=== PATIENT | female | born 1950 | race Caucasian/White ===

== ENCOUNTER 2017-04-24 16:55 | Outpatient (CLI) | payer MEDICARE | END 2017-04-24 16:56 | disposition home or self-care (01) | LOC: BICRAD 16:55 | PROVIDERS: ATTEND Family Medicine | DX: R50.9 Fever, unspecified (principal); R91.8 Other nonspecific abnormal finding of lung field | CPT/HCPCS: 71020 ==

== ENCOUNTER 2017-04-25 13:02 | Inpatient (IN) | payer MEDICARE ==
[2017-04-25 13:40] LABS: Hematocrit 28.7 % (36.0-47.0); Mean Platelet Volume 6.7 fL (7.4-10.4); Red Blood Cell (RBC) Count 3.03 mill/uL (4.20-5.40); White Blood Cell (WBC) Count 12.6 thou/uL (4.8-10.8)
[2017-04-25 13:56] LABS: Lactic Acid - Sepsis 2.3 mmol/L (0.5-2.2)
[2017-04-25 14:01] LABS: ALT (SGPT) 108 U/L (8-55); AST (SGOT) 86 U/L (5-34); Alkaline Phosphatase 494 U/L (40-150); Anion Gap 12 mmol/L (10-20); BUN (Urea Nitrogen) 12 mg/dL (9.8-20.1); Band 15 % (5-11); Calc. Creatinine Clearance 0 mL/min (70-130); Calcium 7.8 mg/dL (7.8-10.44); Carbon Dioxide 20 mmol/L (23-31); Chloride 105 mmol/L (98-107); Estimated GFR-MDRD 59; Globulin 2.9 g/dL (2.4-3.5); Metamyelocyte 1 % (0-0); Neutrophil 81 % (42-75); Protein, Total 5.3 g/dL (6.0-8.3)
--- NOTE | 2017-04-25 14:42 | RAD ---
PORTABLE CHEST: History: Nausea, vomiting. Fluid syndrome. FINDINGS: Lungs appear clear of infiltrate. Heart size is upper normal. Vascular markings are mildly enlarged. No focal infiltrate or significant effusion apparent. IMPRESSION: Heart size is mildly prominent with mild vascular prominence. No infiltrates seen on this portable pr ojection. If there is concern of pneumonia, recommend PA and lateral views of chest. POS: H
[2017-04-25 14:53] LABS: Bilirubin Moderate (Negative); Blood, Urine Moderate (Negative); Glucose, Urine (Dipstick) Negative (Negative); Ketone, Urine Trace mg/dL (Negative); Nitrite Negative (Negative); Protein, Urine (Dipstick) 100 mg/dL (Neg-Trace)
[2017-04-25 15:06] LABS: RBC/HPF 21-50 HPF (0-3); Squamous Epithelial 21-50 HPF (0-3)
[2017-04-25 15:11] LABS: Bacteria/HPF 3+ HPF (None Seen); Hyaline Casts/LPF 0-3 HYALINE CAST LPF (0-3 Hyaline); Renal Epithelial None Seen HPF (0-3); Yeast-All Forms None Seen HPF (None Seen)
[2017-04-25] MEDS ORDERED: metroNIDAZOLE 500 MG/100 ML BAG ONE (16:12)
[2017-04-25] MEDS ORDERED: Potassium Chloride 20 MEQ TAB ONE (16:12)
--- NOTE | 2017-04-25 17:37 | ULT ---
RIGHT UPPER QUADRANT ULTRASOUND 04/25/17 HISTORY: Abdominal pain. Multiple longitudinal and transverse images of the right upper quadrant of the abdomen is obtained us ing a multihertz curvilinear transducer. Real time, color flow and spectral waveform doppler analysis used to evaluate the right upper quadrant. Hyperechoic areas seen in the hepatic parenchyma most compatible with hepatic hemangiomas. No other hepatic masses or lesions seen. These hemangiomas appear to have been present on the patient 's previous ultrasound from February 2014. The common bile duct is of normal size measuring 5 mm. No evidence of intrahepatic biliary dilatation is seen. The gallbladder contains some echogenic material compatible with gallbladder sludge and small gallsto karlene. Small amount of pericholecystic fluid is seen. Normal hepatopedal flow is seen. The visualized portions of the pancreas is unremarkable. The right kidney is unremarkable. IMPRESSION: Gallbladder sludge and small gallstones. There also appears to be nonshadowing structures within the gallbladder lumen possibly representing gallbladder polyps. There does appear to be small amount of p ericholecystic fluid. POS: THEA
[2017-04-25] MEDS ORDERED: Ondansetron HCl/PF 4 MG/2 ML Vial IVP PRN (18:07)
[2017-04-25] MEDS ORDERED: Sodium Chloride 0.9% 1,000 ML IV SCH (18:07)
[2017-04-25] MEDS ORDERED: Ondansetron ODT 4 MG TAB SL PRN ×2 (18:07→20:40)
[2017-04-25 19:20] VITALS: BMI 22.5
[2017-04-25] MEDS: Dextrose 5%-Lactated Ringers 1,000 ML IV SCH (21:04)
[2017-04-25] MEDS: Acetaminophen 500 MG TAB PO PRN (22:09)
[2017-04-25] MEDS: Ondansetron HCl/PF 4 MG/2 ML Vial SLOW IVP PRN (22:11)
[2017-04-26] MEDS: Ondansetron HCl/PF 4 MG/2 ML Vial SLOW IVP PRN (04:23)
[2017-04-26] MEDS: Dextrose 5%-Lactated Ringers 1,000 ML IV SCH ×2 (04:24→15:00)
[2017-04-26] MEDS: Acetaminophen 500 MG TAB PO PRN (05:01)
--- NOTE | 2017-04-26 06:04 | HP ---
DATE OF ADMISSION: 04/25/2017 CHIEF COMPLAINT: Intractable nausea, vomiting, and diarrhea. HISTORY OF PRESENT ILLNESS: This is a 66-year-old female patient of Dr. Charly Mccoy'griselda who was initially seen in the office 7 days ago for flu-like symptoms which had started roughly 1-2 days prior, so this all started on 04/16. She was treated empirically with Tamiflu and afterwards during the treatment she started feeling worse, more nausea, more vomiting and then started to have diarrhe a, started to feel more weak, started to have a mild headache. She was seen yesterday in the office and felt worse with overall body weakness with some overall abdominal discomfort with nausea, vomitin g, diarrhea. She was found to have contaminated UA specimen with too numerous to count white counts, but with her history of neurogenic bladder and requirements of chronic self cathing for the last evaristo ost 10 years, this is not necessarily to be unexpected, but she was started with a prescription of Ci pro and sent home with close followup plans. She came to the ER today secondary to feeling even wors e and just unable to keep anything down and very weak even difficulty concentrating and focusing. In the ER, she was found to be hypovolemic with a systolic in the 80s-90s with a pulse in the 120s and was given several liters of fluid. Her blood pressure came up and her pulse came down back to normal . Now she is no longer tachycardic with normal blood pressure, feels almost normal with just a mild amount of nausea at the current time. PAST MEDICAL HISTORY: Positive for hyperlipidemia, diverticulosis. She has a neurogenic bladder and requires self catheterization. She also has 3 chronic stable liver hemangiomas that are followed by Dr. Epps. Dr. Epps's last note to her said if she has any acute anemias with unexplained blood lo ss, that would be the only reason to go back and look at these liver hemangiomas. PAST SURGICAL HISTORY: Rather complicated. First she had a TAHBSO, then several years later she had had a bladder suspension performed here, a complication of the bladder suspension and she had mesh p ut in and things became taut, and her bladder developed a neurogenic complication and required since then when they went in to get the mesh out she had to do self catheterization. In the consequence of getting the mesh removed, she had an internal bleed and it is unclear whether there was a bleed in t he bowel, but it was definitely a bleed in the mesenteric vessels. The result of the repair of that was ischemic bowel and a subsequent resection of a short segment of bowel. This all happened in [facility] at [place] and it was about 2-3 years ago. She had no issues since. ALLERGIES: To ERYTHROMYCIN which causes hallucinations for her. MEDICATIONS: She takes Lipitor 40 mg daily. She is on multiple alvc-nne-jiuoodr vitamins. FAMILY HISTORY: Father at 80 years old, had a CVA and also had known coronary artery dis ease. Mom is still alive at 93 and has hyperlipidemia. SOCIAL HISTORY: She is , has no toxic habits. Lives in [place]. REVIEW OF SYSTEMS: She had mild headache prior to coming to the emergency room, but no troubles with vision, chewing or swallowing. She denies any cough or chest pain or shortness of breath. She jong es any hemoptysis or hematemesis. The abdominal pain is diffuse, but with nausea and vomiting. She has vomited a couple of times today prior to coming to the emergency room, vomited multiple times in the last couple days. She started also with watery diarrhea. She denies any bright red blood per re ctum. Denies any melena. With a neurogenic bladder she knows of no sensation as far as dysuria, but had no odor to her urine. She denies any seizure activity, no paresis or paresthesias. She denies any homicidal or suicidal ideations, auditory or visual hallucinations. PHYSICAL EXAMINATION: GENERAL: She is alert and oriented, comfortable, resting in bed. VITAL SIGNS: Temperature 97.9, pulse 86, respiration is 16, BP is 116/57, satting 97% on room air. HEENT: Shows normocephalic, atraumatic cranium with pupils that are equal, round, and reactive to li ght and accommodation. Extraocular movements intact. Mucous membranes are moist and pink. She does wear glasses. Her sinuses are nontender. Pharynx: Unremarkable. NECK: Supple, no JVD, no bruits, no thyromegaly. LUNGS: Clear to auscultation bilaterally. No rales, rhonchi, or wheezes. HEART: S1, S2, with no rubs, murmurs, or gallops. ABDOMEN: Soft, nontender, nondistended. Hypoactive bowel sounds throughout. She has a negative Mur phy's exam. She has negative Rovsing and negative McBurney's point. GENITOURINARY: Deferred. NEUROMUSCULAR: She is alert and oriented x4. Cranial nerves II-XII are equal and symmetrical. Ther e are no motor or sensory deficits. She is moving all extremities. Palpable pulses x4. No cyanosis , clubbing or edema. LABORATORY: White count slightly elevated at 12.6 with an H&H of 9.5 and 28.7 respectively with 197, 000 platelets. Neutrophils elevated at 81%, bands elevated at 15%, metamyelocytes had elevated at 1% . Sodium 134, potassium is low at 2.9, chloride 105, bicarb 20, BUN is 12, creatinine is 0.94, gluco se of 93, GFR is 59, AST is elevated at 86, ALT is elevated at 108. Alkaline phosphatase is elevated at 494. Hep B and hepatitis C antibodies are negative. Ultrasound of the abdomen was done and show ed some few stones and some gallbladder sludge, but that does not appear clinically to be associated with this. Chest x-ray is negative. ASSESSMENT: A viral syndrome with hypovolemic shock. She is with intractable nausea and vomiting. Fluid resuscitation thus far as being successful. She also has a mild anemia and hypokalemia with tr ansaminase elevation, all possibly consistent with viral syndromes and rapid IV fluid rehydration and resuscitation. PLAN: To admit. Continue IV fluids. We will follow up on lab work with CBC and comprehensive metab olic panel in the morning plus cytomegalovirus and Ayanna-Triana virus titers. Dr. Mccoy will resume in the morning.
[2017-04-26 06:35] LABS: ALT (SGPT) 104 U/L (8-55); AST (SGOT) 88 U/L (5-34); Alkaline Phosphatase 491 U/L (40-150); Anion Gap 15 mmol/L (10-20); BUN (Urea Nitrogen) 13 mg/dL (9.8-20.1); Bilirubin, Total 2.8 mg/dL (0.2-1.2); Calc. Creatinine Clearance 49 mL/min (70-130); Calcium 8.5 mg/dL (7.8-10.44); Carbon Dioxide 20 mmol/L (23-31); Chloride 110 mmol/L (98-107); Estimated GFR-MDRD 53; Globulin 3.4 g/dL (2.4-3.5)
[2017-04-26 06:41] LABS: Band 19 % (5-11); Mean Platelet Volume 7.3 fL (7.4-10.4); Neutrophil 68 % (42-75); Red Blood Cell (RBC) Count 3.13 mill/uL (4.20-5.40); White Blood Cell (WBC) Count 22.7 thou/uL (4.8-10.8)
--- NOTE | 2017-04-26 09:09 | PRG ---
DATE OF SERVICE: 04/26/2017 SUBJECTIVE: The patient is feeling much better since admission; however, she still has moderate abdo hamida pain. Somewhat nauseated and still with fever. OBJECTIVE: VITAL SIGNS: Temperature 101.1 this morning, pulse 100, respirations 16, pulse ox 99, and blood pres sure 112/57. HEART: Regular rate and rhythm. LUNGS: Clear. ABDOMEN: Soft, but with diffuse tenderness in the epigastric/right upper quadrant especially. EXTREMITIES: With trace edema. LABORATORY DATA: White count increased to 22.7, H&H 9.9 and 30.0. Sodium 141, potassium 4.2, chlori de 120, CO2 of 20, creatinine 1.03, BUN 13, alkaline phosphatase 194-491, AST 86-88, ALT 108-104. ASSESSMENT: 1. Abdominal pain with gallbladder sludge and small gallstones with a small amount pearly cholecysti c fluid seen with elevated liver function tests, most likely consistent with cholecystitis. 2. Fever, probably related to #1. 3. Chronic sinusitis. 4. Chronic urinary tract infection with self-catheterization from a neurogenic bladder. 5. Hypertension. 6. Hyperlipidemia. 7. History of anemia. PLAN: 1. I discuss with Dr. Guzman. The patient probably has cholecystitis with sepsis. 2. Begin IV antibiotics. 3. Hydration. 4. N.p.o. 5. Dr. Guzman may decide to give antibiotics for 24-48 hours before surgery or he may elect to do i t immediately. In the meantime, we will keep patient n.p.o. 6. Continue to follow liver enzymes.
[2017-04-26 10:17] LABS: EBV Early Antigen (EA) IgG AB <9.0 U/mL (0.0-8.9)
[2017-04-26] MEDS: Piperacillin/Tazobactam 3.375 GM, Admixture Fee 1 EACH in Sodium Chloride 0.9% 100 ML IVPB SCH ×3 (11:13→23:05)
[2017-04-26] MEDS ORDERED: Iopamidol 370 76% 100 ML VIAL ONE (13:55)
[2017-04-26] MEDS: Ibuprofen 800 MG TAB PO PRN (17:35)
--- NOTE | 2017-04-26 18:20 | CON ---
DATE OF CONSULTATION: 04/26/2017 CHIEF COMPLAINT: Nausea, vomiting, diarrhea. HISTORY OF PRESENT ILLNESS: The patient is a 66-year-old white female. She is known to myself from prior surgery in 05/2014. At that time, I performed a laparoscopic fundoplication for a large hiatal hernia. She did well following that surgery and continues to do well in regards to that. She notes no dysphagia or reflux and takes no proton pump inhibitors. She had been doing well until about a week ago when she developed flu-like symptoms. She took Tamifl u for a period of time without improvement. She subsequently developed nausea and vomiting almost a week ago. She presented to the emergency room last night for exacerbation of these symptoms. She quiroz s been feeling weak and had a headache as well. In the emergency room, laboratory and radiologic studies were obtained. Her CBC revealed mild leukoc ytosis with a white blood cell count of 12.6. For reasons that are unclear, her white blood cell cou nt has risen to 22.7 this morning. Her hemoglobin level is 9.9. Chemistry profile from yesterday re vealed elevated bilirubin of 3.0. This is 2.8 this morning. AST and ALT are both somewhat elevated. Pancreatic enzymes have not been checked. Her lactate level was normal last night. Her BUN and cr eatinine are normal as well. Gallbladder ultrasound was obtained revealing evidence of small stones and sludge as well as polyps. There is a question of a small amount of pericholecystic fluid. There was felt to be no biliary jelena marion dilatation. PAST MEDICAL HISTORY: 1. Hypercholesterolemia. 2. History of hiatal hernia. 3. History of liver hemangiomas. 4. Neurogenic bladder. PAST SURGICAL HISTORY: 1. SHERLY-BSO. 2. Mesh bladder suspension. 3. Hiatal hernia repair with Uma fundoplication. 4. In 2014, she had a bladder mesh removal that led to some form of bowel problems for which she had a little over a foot of colon resected. MEDICATIONS: Lipitor. ALLERGIES: ERYTHROMYCIN. PERSONAL AND SOCIAL HISTORY: She is . She lives with her in [place]. She does not smok e or drink alcohol. REVIEW OF SYSTEMS: Otherwise, unremarkable. FAMILY HISTORY: Noncontributory. PHYSICAL EXAMINATION: VITAL SIGNS: Her maximum temperature is 101.1. Her pulse is between 86 and 100. Blood pressure is 104/60. GENERAL: She is a well-developed, well-nourished, thin white female resting in bed in no acute distr ess. is present at the bedside. She is alert and oriented x3 and cooperative. She notes ge neral abdominal discomfort, but no acute pain currently. HEAD, EYES, EARS, NOSE, AND THROAT: Unremarkable. NECK: Supple, without mass or tenderness. LUNGS: Clear to auscultation throughout. CARDIAC: Regular rate and rhythm without murmur. ABDOMEN: Mildly protuberant. It is soft without any guarding in any location. She has well-healed abdominal incisions. She does have some mild focal discomfort in the right upper quadrant compared t o the left, but certainly, no evidence of guarding. RECTAL: Deferred at this time. EXTREMITIES: Unremarkable. ASSESSMENT: The patient was in uncertain problem or series of problems causing her current symptoms. While she apparently does have gallstones and does have elevated liver function tests, including bi lirubin, she does not currently act like a typical acute cholecystitis. Pancreatic enzymes have not been checked. Urinalysis reveals too numerous to count white blood cells which may not be unusual fo r somebody who self-catheterizes. Her urine culture shows Escherichia coli which is more than adequa tely treated by the Zosyn that she is currently taking. I will order pancreatic enzymes to rule out unusual pancreatitis. I will obtain a CT scan of the abd omen and pelvis to rule out acute intra-abdominal problems. Hopefully, this will shed some further l ight on her current problems that seemed to be causing her symptoms. I am uncertain that she needs a cholecystectomy at this point; however, in the absence of other findings, cholecystectomy may certai nly be indicated. I have discussed all this in detail with the patient and her . They unders tand and agree to proceed in this fashion.
--- NOTE | 2017-04-26 18:21 | CT ---
CONTRAST ENHANCED CT IMAGES ABDOMEN AND PELVIS 04/26/17 HISTORY: Pain across abdomen for two weeks. Nausea and vomiting. Diarrhea. Patient is status post bowel resection. Contrast enhanced CT images of the abdomen and pelvis is obtained after the administration of IV and oral contrast. The lung bases demonstrate bilateral pleural effusions, larger on the right than on the left. No evidence of free intraperitoneal air is seen. There is a subumbilical area of abdominal wall defec t with bowing of the anterior fascia anteriorly into the subcutaneous fat likely due to a large anter ior abdominal wall muscular defect. The liver, spleen, pancreas, and gallbladder are unremarkable. Ad renal glands are unremarkable. Both kidneys demonstrate some heterogeneous cortical enhancement. Acute pyelonephritis bilaterally ca nnot be excluded. Correlate with clinical findings. A small to moderate amount of free pelvic fluid i s seen. No dilated loops of small bowel or colon is seen. L5-S1 disc space height loss and disc vacuum change s seen. There is also irregularity in the superior end plate of L3. IMPRESSION: Heterogeneous enhancement in the right and left renal parenchyma. Findings may represent acute pyelon ephritis. Correlate with clinical exam and laboratory findings. POS: THEA
[2017-04-27] MEDS: Dextrose 5%-Lactated Ringers 1,000 ML IV SCH ×2 (03:35→22:13)
[2017-04-27] MEDS: Ibuprofen 800 MG TAB PO PRN ×3 (04:27→18:41)
[2017-04-27] MEDS: Ondansetron HCl/PF 4 MG/2 ML Vial SLOW IVP PRN ×2 (04:27→21:21)
[2017-04-27 05:20] LABS: ALT (SGPT) 69 U/L (8-55); AST (SGOT) 54 U/L (5-34); Alkaline Phosphatase 361 U/L (40-150); Anion Gap 10 mmol/L (10-20); BUN (Urea Nitrogen) 8 mg/dL (9.8-20.1); Calc. Creatinine Clearance 62 mL/min (70-130); Calcium 8.2 mg/dL (7.8-10.44); Carbon Dioxide 22 mmol/L (23-31); Chloride 110 mmol/L (98-107); Estimated GFR-MDRD 69; Protein, Total 5.3 g/dL (6.0-8.3)
[2017-04-27] MEDS: Piperacillin/Tazobactam 3.375 GM, Admixture Fee 1 EACH in Sodium Chloride 0.9% 100 ML IVPB SCH ×3 (05:24→18:31)
[2017-04-27 05:52] LABS: Band 3 % (5-11); Hematocrit 25.8 % (36.0-47.0); Mean Platelet Volume 6.9 fL (7.4-10.4); Neutrophil 87 % (42-75); Red Blood Cell (RBC) Count 2.73 mill/uL (4.20-5.40); White Blood Cell (WBC) Count 17.8 thou/uL (4.8-10.8)
--- NOTE | 2017-04-27 08:45 | PRG ---
DATE OF SERVICE: 04/27/2017 SUBJECTIVE: The patient continues to feel better daily. She is still having loose bowels. Still quiroz s abdominal discomfort, although improving. OBJECTIVE: VITAL SIGNS: Temperature 98.9, pulse 91, respirations 21, pulse ox 95, blood pressure 118/61. HEART: Regular rate and rhythm. LUNGS: Clear. ABDOMEN: With minimally diffuse tenderness. EXTREMITIES: No edema. LABORATORY: White count 17.8 down from 22.5, H&H 8.5 and 25.8, probably dilutional, platelet 225. I nitial urine culture positive for E. coli, follow up urine culture negative. ASSESSMENT: 1. Abdominal pain with gallbladder sludge and small stones seen by Dr. Guzman. The picture is stil l unclear whether her issues are related to her gallbladder. CT scan seems to indicate pyelonephriti s. 2. Escherichia coli urinary tract infection with CT suggestive of pyelonephritis. 3. Fever, resolving. 4. Elevated liver function tests continues to improve. 5. Anemia. 6. Hypertension. 7. Hyperlipidemia. 8. History of anemia. PLAN: 1. I discussed with Dr. Guzman. We will obtain a GI consult for further input. 2. Continue IV Zosyn, which seems to be helping the patient. 3. Continue hydration. 4. Ambulate in the hallways. 5. Repeat CBC, comprehensive in a.m. and change IV fluids to half normal saline with 30 KCl per lite r.
[2017-04-27] MEDS: ADMIXTURE FEE IV SCH (10:31)
[2017-04-27] MEDS: POTASSIUM CHLORIDE IV SCH (10:31)
[2017-04-27] MEDS: SODIUM CHLORIDE IV SCH (10:31)
[2017-04-27] MEDS ORDERED: Enoxaparin Sodium 40 MG/0.4 ML SYRINGE SC SCH (19:00)
[2017-04-27] MEDS ORDERED: Diphenoxylate HCl/Atropine Tablet PO PRN (19:38)
--- NOTE | 2017-04-27 19:57 | PRG ---
DATE OF SERVICE: 04/27/2017 SUBJECTIVE: Ms. Mitchell remains in the hospital following evaluation of fever, nausea, vomiting, an d diarrhea. She remains afebrile since I saw her yesterday evening. I had ordered a CT scan which I reviewed shortly after it was performed. This revealed findings potentially consistent with pyelone phritis, but no evidence of acute cholecystitis or any other obvious intra-abdominal process that wou ld cause her symptoms. I had additionally ordered pancreatic enzymes that were within normal limits. She remains on intravenous antibiotics. She tells me that in general she is doing well. She has been tolerating her clear liquids all day. She is voiding well. She notes that she is having watery diarrhea. PHYSICAL EXAMINATION: VITAL SIGNS: She is afebrile with a temperature 97.9, pulse of 83, blood pressure 110/55. ABDOMEN: Soft, nontender, nondistended. She does have a hernia from her prior abdominal surgery. T his was in her lower abdomen and the muscles are widely . There is no focal area of tendern ess in her abdomen. ASSESSMENT: She still has no evidence of cholecystitis and still not recommend any surgery for this. I believe that it is most likely that her problems related to urinary tract infection. She has alr ellen been treated for this and continues to be treated with Zosyn. Her white blood cell count is justin n from yesterday and she has been afebrile and her liver function tests are improved as well (her gorge irubin has dropped from 2.8 to 2.0). I will advance her to a regular diet at this time. I will orde r a Clostridium difficile assay, although I doubt this is the source of her problems currently. I be lieve the Gastroenterology consultation is pending and they may have further insight to potential sarika ologies of her liver function test elevation and her diarrhea. It is entirely possible that her elev ated liver function tests are systemic response to her infectious syndrome.
[2017-04-27] MEDS ORDERED: Pantoprazole 40 MG VIAL IVP SCH (21:00)
[2017-04-28] MEDS: Piperacillin/Tazobactam 3.375 GM, Admixture Fee 1 EACH in Sodium Chloride 0.9% 100 ML IVPB SCH ×4 (00:53→18:33)
[2017-04-28] MEDS: Ibuprofen 800 MG TAB PO PRN ×4 (00:53→23:22)
[2017-04-28] MEDS: POTASSIUM CHLORIDE IV SCH ×2 (01:20→15:17)
[2017-04-28] MEDS: SODIUM CHLORIDE IV SCH ×2 (01:20→15:17)
[2017-04-28] MEDS: ADMIXTURE FEE IV SCH ×2 (01:20→15:17)
[2017-04-28 05:20] LABS: ALT (SGPT) 71 U/L (8-55); AST (SGOT) 69 U/L (5-34); Alkaline Phosphatase 451 U/L (40-150); Anion Gap 12 mmol/L (10-20); BUN (Urea Nitrogen) 8 mg/dL (9.8-20.1); Bilirubin, Total 2.7 mg/dL (0.2-1.2); Calc. Creatinine Clearance 65 mL/min (70-130); Calcium 8.5 mg/dL (7.8-10.44); Carbon Dioxide 23 mmol/L (23-31); Chloride 108 mmol/L (98-107); Estimated GFR-MDRD 67; Globulin 3.3 g/dL (2.4-3.5); Magnesium 1.8 mg/dL (1.6-2.6); Phosphorus 3.4 mg/dL (2.3-4.7); Protein, Total 5.9 g/dL (6.0-8.3)
[2017-04-28 06:11] LABS: Band 3 % (5-11); Hematocrit 27.6 % (36.0-47.0); Mean Platelet Volume 7.4 fL (7.4-10.4); Metamyelocyte 5 % (0-0); Myelocyte 1 % (0-0); Neutrophil 74 % (42-75); Red Blood Cell (RBC) Count 2.93 mill/uL (4.20-5.40)
--- NOTE | 2017-04-28 06:34 | CON ---
DATE OF CONSULTATION: 04/27/2017 REASON FOR CONSULTATION: Elevated LFTs. HISTORY OF PRESENT ILLNESS: Ms. Mitchell is a 66-year-old female, who was admitted to the hospital s econdary to dehydration, acute nausea, vomiting, and diarrhea. In talking with her, she became ill a bout a week ago with flu-like illness with myalgias, arthralgias, chills. She was treated empiricall y with Tamiflu, but it did not improve. She began to have more illness with nausea, vomiting, diarrh ea, headaches, and worsening low back pain, and ultimately came to the emergency room. Apparently day or two before that she had been treated for possible bladder infection with some Cipro. She do es have a history of neurogenic bladder and self-catheterization. In the emergency room, she was hyp otensive with a blood pressure in the 80s-90s, pulse of 120s. She was given massive fluid resuscitat ion and then improved. She continues to have some nausea. She is not vomiting along that, she josephine nues to have diarrhea. Today, no stool studies have been done. Urine cultures were negative. White count of 16,000 in 11; 12,000 in 12; 22,000 on the and 17,000 today. Chemistry is notable for bilirubin of 2.6 on the , AST and ALT are 151 and 170, and alkaline phosphatase of 555 on 016. Today her bilirubin is 2, AST and ALT came down to 54 and 69 and then alkaline phosphatase is 3 61. She is feeling better, starting to take liquids but still has quite a bit of diarrhea. Her lipa se has been normal. Serologic studies were positive for hepatitis antibody total. IgM is not checke d and that is pending. Hepatitis B core antibody is nonreactive. Hepatitis C antibody is nonreactiv e. EBV titer showed evidence of probable prior infections, but no acute infection. She had an abdom en and pelvis CAT scan showed questionable gallbladder wall thickening or sludge. There was enhancem ent of the right and left renal parenchyma indicating possible pyelonephritis. Ultrasound on the 12t h showed questionable gallstones and sludge. General surgery has seen the patient and did not feel t his is acute cholecystitis. PAST MEDICAL HISTORY: Hypertension, diverticulosis, neurogenic bladder, requiring self-catheterizati on, three chronic stable liver hemangioma followed by Dr. Epps. PAST SURGICAL HISTORY: Prior SHERLY-BSO, bladder suspension. Apparently, she has had some intestinal r esection secondary to some abdominal surgery in the past as well had some ischemic bowel. This is at [facility] in [place], couple of years ago. ALLERGIES: ERYTHROMYCIN causes hallucinations. HOME MEDICATIONS: Lipitor. FAMILY HISTORY: Father had CVAs. Mother is alive at 93. SOCIAL HISTORY: Patient is . is at bedside. PRESENT MEDICATIONS HERE: [place], Lovenox, Motrin, Zofran, Zosyn, potassium chloride. PHYSICAL EXAMINATION: GENERAL: Patient is resting comfortably in bed. VITAL SIGNS: Temperature 97. She has been afebrile, respirations 18, pulse 85, blood pressure 112/5 8. LUNGS: Clear. HEART: Regular rate and rhythm without clicks or murmurs. ABDOMEN: Soft, nontender without palpable hepatosplenomegaly. There is no rebound. There is no gua rding. EXTREMITIES: Reveal trace edema. ASSESSMENT: Acute illness likely viral with nausea, vomiting, severe myalgias, arthralgias, fever, c hills, and abnormal liver enzymes. This cluster of symptoms would indicate most likely a viral-type illness, it is possibly she had some urosepsis related to her previous in and out catheterizations an d pyelonephritis, it is difficult to know, because she was on antibiotics before coming in and so thi s could have masked the cultures, which are negative here. With ongoing diarrhea, I am going to [facility] some stool studies, it would be reasonable to check hepatitis A IgM and acute hepatitis B panel as well. Often no causes were found on these viral type illness. At this time, I see no signs of chola ngitis or acute cholecystitis. Agree with Dr. Guzman, I do not think that she needs to have a lapar oscopic cholecystectomy at this time.
--- NOTE | 2017-04-28 08:40 | PRG ---
DATE OF SERVICE: 04/28/2017 PRIMARY CARE PHYSICIAN: Dr. Charly Mccoy SUBJECTIVE: The patient continues to have fever. She states that she had her last fever last night. She is feeling some stronger. She was able to walk in the hallway yesterday with her . She continues to have diarrhea, abdominal pain, no vomiting, but continues to have nausea and decreased appetite. I appreciate Dr. Guzman and Dr. Marie input. PHYSICAL EXAMINATION: VITAL SIGNS: Temperature 97.7, pulse of 87, respirations 18, blood pressure 119 /59, pulse ox is 98% on room air. GENERAL: She is awake and alert. She has no acute distress. She is uncomfortable, but nontoxic in appearance. HEENT: Mucosa is moist. HEART: Regular rate and rhythm. LUNGS: With decreased breath sounds, but clear. No wheezes, rales or rhonchi. ABDOMEN: Positive bowel sounds, soft, diffuse tenderness, worse in the upper abdomen. No rebound, no guarding. EXTREMITIES: 1-2+ edema bilaterally. LABORATORY DATA: Sodium 139, potassium 3.9, chloride 108, CO2 23, BUN and creatinine 8 and 0.85 with a GFR of 67. Serum glucose of 93, calcium 8.5, albumin low at 2.6, total bilirubin back up to 2.7, it was 2.0 yesterday, AST and ALT elevated at 69 and 71, alkaline phosphatase higher today at 451. Amylase and lipase were normal. Hepatitis A IgM was nonreactive, hepatitis B surface antigen was nonreactive. ASSESSMENT AND PLAN: This is a 66-year-old female patient of Dr. Charly Mccoy admitted for a febrile syndrome with hypovolemic shock. She was treated with fluid resuscitation which improved. She has had symptoms consistent with pyelonephritis due to recent urinary tract infection. Her blood and urine cultures have been negative since admission here, but she was already on antibiotics. 1. Presumptive pyelonephritis. We will continue IV Zosyn and fluid management due to poor p.o. intake. 2. Elevated liver function tests with a cholestatic indices. I appreciate Dr. Marie and Dr. Guzman, would consider MRCP or ERCP for possible choledocholithiasis. Further plan per GI and Surgery. 3. Dyspnea with extensive fluid resuscitation earlier. Will check chest x-ray today and consider holding her IV fluids, a dose of diuresis. We will monitor following the chest x-ray. MTDD
[2017-04-28] MEDS: Saccharomyces boulardii 250 MG CAP PO SCH (09:19)
[2017-04-28] MEDS: Pantoprazole 40 MG VIAL IVP SCH (09:19)
[2017-04-28] MEDS: Enoxaparin Sodium 40 MG/0.4 ML SYRINGE SC SCH (09:19)
--- NOTE | 2017-04-28 10:28 | RAD ---
CHEST 1 VIEW: HISTORY: Dyspnea. COMPARISON: Chest 1 view 04/25/17. FINDINGS: There are enlarging layering bilateral pleural effusions. Heart size is upper limits of normal. Mil d interstitial edema. No pneumothorax. No acute osseous abnormality. IMPRESSION: Enlarging effusions and mild pulmonary edema. POS: TPC
[2017-04-29] MEDS: Piperacillin/Tazobactam 3.375 GM, Admixture Fee 1 EACH in Sodium Chloride 0.9% 100 ML IVPB SCH ×4 (01:03→18:20)
[2017-04-29] MEDS: SODIUM CHLORIDE IV SCH (04:29)
[2017-04-29] MEDS: POTASSIUM CHLORIDE IV SCH (04:29)
[2017-04-29] MEDS: ADMIXTURE FEE IV SCH (04:29)
[2017-04-29 06:09] LABS: ALT (SGPT) 48 U/L (8-55); AST (SGOT) 42 U/L (5-34); Alkaline Phosphatase 360 U/L (40-150); Anion Gap 13 mmol/L (10-20); BUN (Urea Nitrogen) 7 mg/dL (9.8-20.1); Bilirubin, Total 1.6 mg/dL (0.2-1.2); Calc. Creatinine Clearance 82 mL/min (70-130); Calcium 7.9 mg/dL (7.8-10.44); Carbon Dioxide 19 mmol/L (23-31); Chloride 110 mmol/L (98-107); Estimated GFR-MDRD 78; Globulin 2.8 g/dL (2.4-3.5); Protein, Total 5.1 g/dL (6.0-8.3)
[2017-04-29 06:17] LABS: Band 14 % (5-11); Hypochromia SLIGHT = 6-15 cells (100X) (0-5/hpf); Mean Platelet Volume 7.4 fL (7.4-10.4); Neutrophil 72 % (42-75); Red Blood Cell (RBC) Count 2.44 mill/uL (4.20-5.40); White Blood Cell (WBC) Count 15.4 thou/uL (4.8-10.8)
[2017-04-29] MEDS: Saccharomyces boulardii 250 MG CAP PO SCH (08:25)
[2017-04-29] MEDS: Pantoprazole 40 MG VIAL IVP SCH (08:25)
[2017-04-29] MEDS: Enoxaparin Sodium 40 MG/0.4 ML SYRINGE SC SCH (08:25)
[2017-04-29] MEDS: Ibuprofen 800 MG TAB PO PRN (08:25)
--- NOTE | 2017-04-29 11:56 | PRG ---
DATE OF SERVICE: 04/29/2017 SUBJECTIVE: The patient is sitting up in chair today. She has been walking on the floor. She josephine nues to complain of moderate low back pain. She denies abdominal pain today. PHYSICAL EXAMINATION: VITAL SIGNS: Temperature 98.1, pulse 87, respirations 16, oxygen saturation 96% on room air, blood p ressure 131/61. GENERAL: Alert and oriented x3, in no acute distress. HEENT: Normocephalic. Pupils equally round and reactive to light. Extraocular muscles intact. HEART: Regular rate and rhythm, no murmurs. LUNGS: Clear to auscultation bilaterally, no wheezes. ABDOMEN: Soft, nontender, nondistended. Bowel sounds heard throughout. EXTREMITIES: A 1+ edema bilaterally, no cyanosis. LABORATORY DATA: White blood cell count 15.4, hemoglobin 7.8, hematocrit 23.0, MCV 94.1, platelets 3 35, neutrophils 72%. Sodium 138, potassium 3.5, chloride 110, carbon dioxide 19, BUN 7, creatinine 0.74, glucose 124, tota l bilirubin 1.6, AST 42, ALT 48, alkaline phosphatase 360, total protein 5.1, albumin 2.3. ASSESSMENT AND PLAN: 1. Pyelonephritis, white blood cell count improving. Continue IV Zosyn. IV fluids have been stoppe d due to edema bilaterally. She also has a drop in her hemoglobin. 2. Normocytic anemia. She dropped a little over one point on her hemoglobin from yesterday. This c ould be due to IV fluid dilution. We will recheck in the morning to see if it improves. 3. Elevated liver function tests. Dr. Marie and Dr. Guzman are on board and I feel that she needs surgical intervention at this time. DISPOSITION: The patient and family still concerned about back pain and drop in hemoglobin. We will keep at least one more night and recheck in the morning. We will also obtain iron studies, folate a nd B12.
[2017-04-29 13:25] LABS: Iron 60 ug/dL (50-170)
[2017-04-29] MEDS ORDERED: Furosemide 20 MG/2 ML VIAL SLOW IVP SCH (14:00)
[2017-04-29 14:28] LABS: Hematocrit 24.5 % (36.0-47.0)
[2017-04-29] MEDS: HYDROcodone/Acetaminophen 7.5/325 mg Tablet PO PRN (15:53)
--- NOTE | 2017-04-29 20:16 | PRG ---
DATE OF SERVICE: 04/29/2017 SUBJECTIVE: Ms. Mitchell still does not feel well. She is having couple of times a day intense low back pain across the sacroiliac area associated with chills and rigors. She feels excess fever, but she has been told she does not. She has less diarrhea. OBJECTIVE: VITAL SIGNS: Temperature has been 98.7 to 98.1, last T-max of 101 was recorded on 04/26/2017; pulse 84; blood pressure 132/62. General: She looks pale. LUNGS: Decreased breath sounds at the bases. CARDIAC: Heart has regular rhythm. ABDOMEN: Soft, nontender. There is no right upper quadrant tenderness. EXTREMITIES: Reveal 2+ edema. Sacroiliac tenderness is noted. LABORATORY STUDIES: Sodium is 138, potassium 3.5, BUN and creatinine are 7 and 0.74, bilirubin is 1. 7, AST 42, ALT 48, alkaline phosphatase is 360, albumin 2.3. White count is 15; hemoglobin 7.9, it w as 9.1 yesterday; platelet counts 335. Stool cultures were negative. Clostridium difficile was nega tive. Urine and blood cultures from admission were negative. ASSESSMENT: 1. Acute illness, possibly urosepsis. The patient was on antibiotics when came in, for more likely a n acute viral gastritis based on the acute onset and nausea, vomiting, diarrhea with presentation; ho wever, she has improved, but still have significant myalgias, especially in lower back, chills and le ukocytosis. This may represent reactive arthropathy after viral illness. Her diarrhea is improving. 2. She continues to have edema and fluid overload from aggressive resuscitation. We will give her l ow dose of Lasix. 3. The patient is concerned she still has chills a couple of times a day with some associated back p ain. I have asked nurses to check around 4-6 today, several times check her temperature, and if she feels hot, I have asked her to have the nurses have her temperature checked. 4. With the ongoing leukocytosis and persistent malaise, myalgias and some chills. Dr. Cisneros from [facility] to render an opinion. 5. With regard to her elevated liver enzymes, she does not seem to have cholecystitis or cholangitis . I suspect her elevated liver enzymes are reactive either for viral process or secondary to overall sepsis. RECOMMENDATIONS: Lasix 20, ID consult, may be reasonable to consider discontinuing antibiotics. She has had no fever, and we are not really sure what we are treating. If it is really felt strongly th at she had pyelonephritis, then maybe that is reasonable consider antibiotic, although we can change from the Zosyn as this may be somewhat bothering her.
[2017-04-30] MEDS: Piperacillin/Tazobactam 3.375 GM, Admixture Fee 1 EACH in Sodium Chloride 0.9% 100 ML IVPB SCH ×3 (00:15→12:45)
[2017-04-30] MEDS: HYDROcodone/Acetaminophen 7.5/325 mg Tablet PO PRN ×2 (00:16→08:26)
[2017-04-30 05:31] LABS: ALT (SGPT) 41 U/L (8-55); AST (SGOT) 39 U/L (5-34); Alkaline Phosphatase 326 U/L (40-150); Anion Gap 9 mmol/L (10-20); BUN (Urea Nitrogen) 7 mg/dL (9.8-20.1); Bilirubin, Total 1.3 mg/dL (0.2-1.2); Calc. Creatinine Clearance 81 mL/min (70-130); Calcium 8.3 mg/dL (7.8-10.44); Carbon Dioxide 25 mmol/L (23-31); Chloride 103 mmol/L (98-107); Estimated GFR-MDRD 77; Globulin 3.2 g/dL (2.4-3.5); Protein, Total 5.6 g/dL (6.0-8.3)
[2017-04-30 06:11] LABS: Band 6 % (5-11); Hematocrit 24.4 % (36.0-47.0); Mean Platelet Volume 7.4 fL (7.4-10.4); Metamyelocyte 4 % (0-0); Neutrophil 76 % (42-75); Red Blood Cell (RBC) Count 2.61 mill/uL (4.20-5.40); White Blood Cell (WBC) Count 18.9 thou/uL (4.8-10.8)
[2017-04-30] MEDS: Pantoprazole 40 MG VIAL IVP SCH (08:25)
[2017-04-30] MEDS: Saccharomyces boulardii 250 MG CAP PO SCH (08:26)
--- NOTE | 2017-04-30 12:05 | PRG ---
DATE OF SERVICE: 04/30/2017 SUBJECTIVE: The patient is sitting up in chair, putting on her makeup. She reports feeling a little better, but continues to have [id number] low back pain. She denies abdominal pain. Overnig ht, she has had low grade fever to 99. OBJECTIVE: VITAL SIGNS: Temperature 99.6, pulse 98, respirations 18, oxygen saturation 91% on room air, blood p ressure 122/68. GENERAL: Alert and oriented x3, in no acute distress. HEENT: Normocephalic. Pupils equal, round and reactive to light. Extraocular muscles intact. HEART: Regular rate and rhythm, no murmurs. LUNGS: Clear to auscultation bilaterally. No wheezes. ABDOMEN: Soft, nontender, nondistended. Bowel sounds heard throughout. EXTREMITIES: 1+ edema bilaterally. No cyanosis. LABORATORY DATA: White blood cell count 18.9, hemoglobin 8.0, hematocrit 24.4, MCV 93.6, neutrophils 76%. Sodium 134, potassium 3.4, chloride 103, carbon dioxide 25, BUN 7, creatinine 0.75, glucose 104, calc ium 8.3, total bilirubin 1.3, AST 39, ALT 41, alkaline phosphatase 326, CRP 11, total protein 5.6, al bumin 2.4, globulin 3.2, iron 60, ferritin 378, vitamin B12 greater than 2000, folate 15.7. ASSESSMENT AND PLAN: 1. Pyelonephritis. The patient continues to have low back pain. White cell count increased from ye ster. Continue IV Zosyn. Dr. Cisneros has been consulted for evaluation of continued symptoms. She continues to have low-grade fever. 2. Normocytic anemia. She has improved slightly from yesterday on her hemoglobin, but is still at 8 .0. 3. Elevated liver function tests. Liver enzymes have improved. 4. Low back pain. The patient is having a problem with [place] with side effects. We will change chelsie k to ibuprofen, but at a lower dose. She is on Protonix at this time. DISPOSITION: The patient will be moved to the medical floor as she does not require continuous heart monitoring. Dr. Cisneros to see her today and give input to her current condition.
[2017-04-30] MEDS: Ibuprofen 600 MG TAB PO PRN ×2 (15:28→23:29)
--- NOTE | 2017-04-30 17:10 | PRG ---
DATE OF SERVICE: 04/30/2017 SUBJECTIVE: Ms. Mitchell feels a little bit better. She is having less swelling. She still has the back pain. Dr. Cisneros did see her today. MEDICATIONS: Presently include Florastor, Protonix, levofloxacin, ibuprofen, Lomotil p.r.n. She is tolerating p.o. PHYSICAL EXAMINATION: VITAL SIGNS: Temperature 99.2 and 99.6 on T-max. Blood pressure 111/61. GENERAL: The patient is alert and oriented. LUNGS: Clear. ABDOMEN: Soft, nontender. LABORATORY STUDIES: White count 18.9 up from 15,000 yesterday, hemoglobin 8, platelet count 537, sed rate 84. CRP is 11. Sodium 134, potassium 3.4, BUN and creatinine are 7 and 0.75, bilirubin is 1.3 , AST and ALT have dropped to 39 and 41, alkaline phosphatase is 326. ASSESSMENT: 1. Admitted with a diagnosis of pyelonephritis. She does have Escherichia coli less than 50,000 on 04/24/2017, although she had severe nausea, vomiting, diarrhea, and this could have been from sepsis from pyelonephritis or could have been her primary gastroenteritis. She has been treated for several days with persistent leukocytosis and fever. 2. Persistent low back pain. She did have some changes on her CT of irregular superior plate of L3 and L5-S1 disk space loss. Dr. Cisneros has seen her and is getting an MRI of the back to rule out disk itis in light of her ongoing fever, persistent low back pain, elevated sed rate, CRP. 3. Abnormal liver function tests, improving. I still feel this is probably secondary to an infectio n or sepsis. There are no signs of cholelithiasis, acute cholecystitis, or cholangitis with no right upper quadrant tenderness. If the MRI is negative, we will consider a HIDA scan to make sure we are not missing acalculous cholecystitis, although she has no pain in that area. We will continue along following with you. We will recheck liver function tests tomorrow.
--- NOTE | 2017-04-30 19:17 | CON ---
DATE OF CONSULTATION: 04/30/2017 REASON FOR CONSULTATION: Fever, general malaise, back pain. 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 She was in her usual state until about 7 days prior to admission when she developed flu-like symptoms, treated empirically without improvement. Then she al so had some nausea, vomiting, diarrhea, and noticed progressively worsening lower back pain for the p ast 3 weeks in the lower lumbosacral spine area. She had a urine culture from 04/24/2017 which showe d a very [place] susceptible E. coli, eventually came to the emergency room after she had started a presc ription for Cipro, which she took one dose apparently. Initial findings are systolic blood pressure 80-90, pulse 120, given IV fluids, and she feels better, still with quite significant back pain. LABORATORY DATA: Initial labs are white cell count 17,000 and now is 18,000, hemoglobin 8, platelets 537, 76% neutrophils. Chemistry: Sodium 134, creatinine 0.75, bilirubin 1.3, AST 39, alkaline phos phatase 326. CRP 11, albumin 2.4. Urinalysis with greater than 50 wbc's. She had an ABG serology, showed old infection. Hepatitis serology which was not remarkable. Microbiology thus far, we have 2 sets of negative blood cultures and urine culture 48 hours. C. diff negative. Currently, patient receiving Zosyn. She denies headaches, visual symptoms, sore throat, odynophagia, dysphagia. No neck pain. She has lower lumbosacral spine pain radiating across to the paravertebra l area. No abdominal pain, unable to void by herself. She needs in and out catheterization. No thomas nt symptoms. No skin disorder. PAST MEDICAL HISTORY: Hyperlipidemia, diverticulosis, neurogenic bladder requiring self-catheterizat ion, liver hemangiomas. Multiple bladder procedures with suspension, mesh placement and removal, and neurogenic/myogenic bladder requiring self-catheterization. She also developed an area of ischemic bowel and required segmental resection in the past [facility] in [place]. ALLERGIES: ERYTHROMYCIN with hallucinations mostly. MEDICATIONS: Lipitor, currently on Zosyn, pantoprazole, Saccharomyces. FAMILY HISTORY: Noncontributory. SOCIAL HISTORY: Never a smoker. Lives in [place] with . PHYSICAL EXAMINATION: VITAL SIGNS: T-max 99.6, blood pressure 111/61, pulse 85, respirations 18-20, O2 sats 92%. SKIN: With no areas of skin breakdown. Peripheral IV access. No Garcia catheter. HEENT: Ocular movements are conjugate. Oral cavity with no remarkable findings. NECK: Supple. No jugular venous distention. LUNGS: Clear to auscultation and percussion. HEART: S1 and S2, regular rate without murmurs. ABDOMEN: Soft, question of bladder distention, moderate tenderness at mid lower lumbosacral spine ar ea. EXTREMITIES: No joint inflammatory activity noted. Moves all extremities equally. Plantar response s are flexure. 1+ dorsalis pedis. NEUROLOGIC: Cognitive function appears to be intact. The labs have been reviewed above. Chest x-ray, large effusions and mild pulmonary edema. She had a consultation with Dr. Guzman. This was regarding gallstones. The abdomen and pelvis CT was ordere d by Dr. Guzman and showed heterogeneous enhancement right and left renal parenchyma and it also dem onstrated irregularity in superior endplate of L3. ASSESSMENT: 1. Multiple bladder procedures with a myogenic/neurogenic bladder requiring self-catheterization. 2. General malaise with fever, arthralgias, and progressively worsening lumbosacral spine pain. 3. Abnormal urinalysis with Escherichia coli recovered from urine culture from 04/24/2017. 4. Imaging findings consistent with pyelonephritis. 5. Abnormalities on L3 endplate with associated worsening back pain. DISCUSSION: Differential diagnosis includes an invasive UTI associated with neurogenic or myogenic b ladder with pyelonephritis plus/minus LS spine infection. We will order an MRI of the LS spine to ru le out diskitis and osteomyelitis. If that is negative, then continue with oral quinolone for discha rge planning for 2 weeks. The patient will be at risk for recurring urinary tract infections, may co nsider topical estrogen to the vaginal area to decrease risk of colonization, but emphasis will be on proper in and out catheterization to reduce her residuals. If she has positive findings on MRI, the n we will have to be treated for diskitis and osteomyelitis with IV medication.
[2017-05-01 05:06] LABS: ALT (SGPT) 31 U/L (8-55); AST (SGOT) 29 U/L (5-34); Alkaline Phosphatase 262 U/L (40-150); Anion Gap 9 mmol/L (10-20); BUN (Urea Nitrogen) 8 mg/dL (9.8-20.1); Bilirubin, Total 0.9 mg/dL (0.2-1.2); Calc. Creatinine Clearance 83 mL/min (70-130); Calcium 8.3 mg/dL (7.8-10.44); Carbon Dioxide 26 mmol/L (23-31); Chloride 105 mmol/L (98-107); Estimated GFR-MDRD 79; Protein, Total 5.4 g/dL (6.0-8.3)
[2017-05-01 05:13] LABS: Band 3 % (5-11); Hematocrit 21.4 % (36.0-47.0); Mean Platelet Volume 6.6 fL (7.4-10.4); Metamyelocyte 1 % (0-0); Myelocyte 1 % (0-0); Neutrophil 71 % (42-75); Red Blood Cell (RBC) Count 2.29 mill/uL (4.20-5.40); White Blood Cell (WBC) Count 14.2 thou/uL (4.8-10.8)
[2017-05-01] MEDS: Ibuprofen 600 MG TAB PO PRN ×3 (06:32→21:27)
--- NOTE | 2017-05-01 08:09 | PRG ---
DATE OF SERVICE: 05/01/2017 SUBJECTIVE: The patient now on the medical floor. She reports still having low back pain, but a lit tle better. We switched her to a lower dose ibuprofen from [place] and is no longer having side effect s. She states the ibuprofen is adequate. She had no fever overnight. PHYSICAL EXAMINATION: VITAL SIGNS: Temperature 98.4, pulse 97, respirations 20, oxygen saturation 97% on room air, blood p ressure 131/80. GENERAL: Alert and oriented x3 with no acute distress. HEENT: Normocephalic. Pupils are equal, round and react to light. Extraocular muscles intact. HEART: Regular rate and rhythm, no murmurs. LUNGS: Clear to auscultation bilaterally. No wheezes. ABDOMEN: Soft, nontender, nondistended. Bowel sounds heard throughout. EXTREMITIES: 1+ edema bilaterally. No cyanosis. MUSCULOSKELETAL: Tender to palpation at the lumbosacral junction. LABORATORY DATA: White blood cell count 14.2, hemoglobin 7.2, hematocrit 21.4, MCV 93.3, platelets 6 64, neutrophils 71%. Sodium 137, potassium 3.3, chloride 105, carbon dioxide 26, BUN 8, creatinine 0.73, glucose 94, calci um 8.3, total bilirubin 0.9, AST 29, ALT 31, alkaline phosphatase 262. Total protein 5.4, albumin 2. 4. ASSESSMENT AND PLAN: 1. Pyelonephritis. IV antibiotics have been changed to Levaquin. White cell count decreased from y esterday. Dr. Cisneros has evaluated the patient and agreed with the diagnosis of pyelonephritis. Bowers linda, there is concern for possible spread to the low back area. He has ordered an MRI of the low chelsie k to rule out osteomyelitis or diskitis. 2. Normocytic anemia. This continues to be low. This is likely reactive to the infection. 3. Elevated liver function tests. Liver enzymes have improved to normal range. 4. Low back pain. MRI has been ordered. Pain improved with ibuprofen with no side effects since we stopped the [place]. She is on Protonix at this time. DISPOSITION: Awaiting MRI results and further recommendations from Dr. Cisneros. Dr. Charly Mccoy will take over care tomorrow 05/02/2017.
[2017-05-01] MEDS: Pantoprazole 40 MG VIAL IVP SCH (10:05)
[2017-05-01] MEDS: Saccharomyces boulardii 250 MG CAP PO SCH (10:06)
--- NOTE | 2017-05-01 10:26 | PRG ---
DATE OF SERVICE: 05/01/2017 HISTORY OF PRESENT ILLNESS: Ms. Mitchell remains hospitalized on the medical floor. I have been con sulted when she arrived at the hospital secondary to concerns of her abdominal problems, fever, leuko cytosis were potentially related to her gallbladder. She did have elevated liver function tests with elevated bilirubin level. She, however, did not have an examination typical of cholecystitis and he r CT scan did not show evidence of this. She did have evidence of a urinary tract infection when she was admitted. Her CT scan also showed potential changes consistent with pyelonephritis. She remain s on intravenous antibiotics. She has now been switched over to Levaquin. She notes that she is slo wly feeling a little better. She is tolerating her diet without vomiting. She is having bowel movem ents now. She denies any severe abdominal pain, although she does note some lower back pain which sh e feels is better. She has been seen by Dr. Cisneros. Dr. Cisneros ordered an MRI to rule out potential s pread of infection to her spine. PHYSICAL EXAMINATION: VITAL SIGNS: Today, she is afebrile with temperature 98.5, pulse is 92, blood pressure 111/64. LUNG S: Clear to auscultation anteriorly. ABDOMEN: Soft, nontender, nondistended. There is no focal tenderness. She does have an obvious inc isional hernia in her lower abdomen related to her prior laparotomy. LABORATORY STUDIES: CBC from today reveals white blood cell count of 14.2 down from 18.9 yesterday. She is significantly anemic with hemoglobin of 7.2. Chemistry profile reveals mild electrolyte abno rmalities. Her bilirubin level today is down to 0.9, which is entirely within normal limits. The hi ghest of her bilirubin level was 3.0 when she was admitted. Alkaline phosphatase and transaminases a re also decreased. ASSESSMENT: She appears to continue to improve with antibiotics. Given that she is currently on Lev aquin, since she appears to be relatively stable, she can probably be transitioned to oral antibiotic s and discharged in the near future pending the results of the MRI that is to be obtained today. Fro m a surgical standpoint, there is no further indications for involvement. Since her ultrasound did s uggest that she had sludge and small stones, she may at some point require cholecystectomy if she has recurrent elevated liver function tests or has symptoms specifically referable to the gallbladder. Otherwise, she does not require cholecystectomy at this time. She is also an appropriate candidate f or repair of her ventral incisional hernia. She has widely rectus muscles inferiorly. She did have a much more functional abdominal wall with medialization of her rectus muscles during the c ourse of a hernia repair. I have given her and her my card, we will be happy to see her at a ny point in the future that I can be of assistance.
--- NOTE | 2017-05-01 10:59 | PQF ---
CLINICAL DOCUMENTATION IMPROVEMENT CLARIFICATION FORM: ICD-10 Updated PLEASE DO AN ADDENDUM TO THE PROGRESS NOTE WITH ANY DOCUMENTATION UPDATES OR ADDITIONS AND CARRY THROUGH TO DC SUMMARY. THANK YOU. DATE: 05/01/17 ATTN: Dr. Guidry Please exercise your independent, professional judgment in responding to the clarification form. Clinical indicators are provided on the bottom of this form for your review Please check appropriate box(s): [ X ] Sepsis due to: (Pna, UTI, gangrenous gall bladder, etc.) UTI Due to: [ ] Device (please specify) [ ] Severe sepsis with acute organ dysfunction of: (Examples: respiratory failure, encephalopathy, acute kidney failure, other ) [ ] Localized infection without sepsis [ ] Other diagnosis [ ] Unable to determine In addition, please specify: Present on Admission (POA): [ X ] Yes [ ] No [ ] Unable to determine For continuity of documentation, please document condition throughout progress notes and discharge summary. Thank You. CLINICAL INDICATORS - SIGNS / SYMPTOMS / LABS ED REPORT: MAXIMUM TEMP. 102-102.9 BP 86/54, PULSE 92-110 LAB: LACTIC ACID 2.3 H&P: IN THE ER, SHE WAS FOUND TO BE HYPOVOLEMIC W/ A SYSTOLIC IN THE 80S-90S W/ A PULSE IN THE 120S & WAS GIVEN SEVERAL LITERS OF FLUID. WHITE COUNT 12.6 PN 04/26: WHITE COUNT INCREASED TO 22.7 CHRONIC UTI W/ SELF-CATHETERIZATION FROM A NEUROGENIC BLADDER GI CONSULT: IT IS POSSIBLY SHE HAD SOME UROSEPSIS R/T HER PREVIOUS IN & OUT CATHETERIZATIONS & PYELONEPHRITIS,.. GI PN 04/30/17: ABNORMAL LIVER FUNCTION TESTS, IMPROVING. I STILL FEEL THIS IS PROBABLY SECONDARY TO AN INFECTION OR SEPSIS. PN 04/30: PYELONEPHRITIS RISKS: H&P: SHE HAS NEUROGENIC BLADDER & REQUIRES SELF CATHETERIZATION. ASSESSMENT: A VIRAL SYNDROME WITH HYPOVOLEMIC SHOCK. TREATMENTS: CPOE 04/26: TO 04/30: ZOSYN 3.375 GM IV Q 6 HR CPOE 04/30: LEVAQUIN 500MG PO DAILY CPOE 04/29: ID CONSULT Thank you, Sherine (This form is maintained as a part of the permanent medical record) 2015 [employer], [employer]. All Rights Reserved Sherine Lisa RN, BSN [email or web address] Office: [phone] [facility]
--- NOTE | 2017-05-01 12:41 | PRG ---
DATE OF SERVICE: 05/01/2017 Ms. Mitchell still is getting feverish at times she feels. PHYSICAL EXAMINATION: VITAL SIGNS: Her temperature max was 99 at 1600 yesterday, temperature at present 98, pulse 92, bloo d pressure 111/64. ABDOMEN: Soft, nontender. She is tolerating a diet. LABORATORY STUDIES: White count 14.2 today, hemoglobin 7.2, platelet count 664, AST and ALT are norm al now. Alkaline phosphatase is 262. Rheumatoid factor was negative. ASSESSMENT: 1. Viral gastritis versus pyelonephritis with Escherichia coli resolving. 2. Abnormal liver function tests, likely slowly resolving. 3. Persistent low grade temperature, elevated sed rate and CRP with back pain. MRI of the lumbar sp ine has been ordered to rule out diskitis and is pending. 4. We will follow from a distance at this time with resolution of LFTs.
--- NOTE | 2017-05-01 16:53 | MRI ---
EXAM: MRI LUMBAR SPINE WITH NO ACTIVE DISEASE WITHOUT CONTRAST: HISTORY: New low back pain. Fever. COMPARISON: None. TECHNIQUE: MRI of the lumbar spine is performed with and without intravenous Gadolinium administration. Multise quential, multiplanar imaging is performed. FINDINGS: Heterogeneous T1 marrow signal intensity of the lumbar vertebra suggesting senescent change. There i s no significant STIR hyperintensity to suggest edema or ligamentous injury. There is 5 mm of sanjay listhesis of L4 upon L5. Postcontrast images do not demonstrate any abnormal enhancement of the vertebral bodies. There is no abnormal enhancement in the lumen of the thecal sac including the cauda equina and conus medullaris. There is mild chronic compression deformity and superimposed Schmorl's node along the superior end plate of L3. There is symmetric signal intensity of the psoas muscles. There is appropriate signal intensity of t he visualized solid organs. Conus medullaris terminates at the T12-L1 disk space level. T12-L1: Adequate disk hydration. No significant central canal stenosis or foraminal narrowing. L1-L2: Disk desiccation with mild loss of disk space height. No significant posterior disk abnormal ity. No significant central canal stenosis. Mild to moderate bilateral foraminal narrowing. L2-L3: Adequate disk hydration. No significant loss of disk space height. Minimal left and right p aracentral disk bulges. Mild posterior element hypertrophy. There is mild narrowing of both subarti cular zones with partial obscuration of bilateral traversing L3 nerve roots. Mild to moderate right and moderate left foraminal narrowing. L3-L4: Adequate disk hydration. No significant loss of disk space height. Minimal generalized disk bulge, along with minimal ligamentum flavum thickening and facet hypertrophy result in minimal steno sis of the thecal sac. Mild bilateral neural foraminal stenosis. L4-L5: There is disk desiccation with moderate loss of disk space height. There is a generalized di sk bulge with a left subarticular superior disk sequestration. The sequestered disk fragment measure s approximately 0.8 cm. There is narrowing of the left subarticular zone, at the mid body of the L4 vertebra. There is obscuration of the traversing left L4 nerve root. At the disk space, there is a broad-based disk bulge, ligamentum flavum thickening, and facet hypertrophy that result in moderate c entral canal stenosis. Mild to moderate bilateral neural foraminal narrowing. L5-S1: Desiccation with no significant loss of disk space height. Minimal central disk protrusion. No significant central canal stenosis. Mild bilateral neural foraminal narrowing. On the postcontrast images, there is enhancement peripheral to the aforementioned superiorly extruded disk fragment. There is no MR evidence of an epidural abscess. No MR evidence of diskitis osteomyelitis. IMPRESSION: 1. No MR evidence of diskitis osteomyelitis. 2. Degenerative disk disease of the lumbar spine as above. There is an extruded disk fragment at th e mid L4 level with narrowing of the left subarticular zone. Correlate for radicular symptoms in the left L4 and L5 dermatomes. 3. Moderate central canal stenosis at L4-L5. POS: [facility]
--- NOTE | 2017-05-01 20:45 | PRG ---
DATE OF SERVICE: 05/01/2017 SUBJECTIVE: She is still a little bit dyspneic at rest, toileting better though in general. No head aches. No abdominal pain or diarrhea. Still using the in and out catheterization. OBJECTIVE: VITAL SIGNS: Temperature has normalized, blood pressure 140/80, pulse 92, respirations 18, O2 sat 94 %. SKIN: Sitting up, eating dinner in no distress. HEENT: Ocular movements are conjugate. LUNGS: Bibasilar inspiratory crackles. HEART: S1, S2, regular rate. ABDOMEN: Soft. Not distended. EXTREMITIES: Moves all extremities equally. +2 edema. LABORATORY DATA: White cell count at 14.2, hemoglobin 7.2 with platelet count of 664. Rheumatoid fa ctor negative. ASSESSMENT AND DISCUSSION: Multiple bladder procedures, myogenic neurogenic bladder requiring self-c atheterization, general malaise and fever, arthralgias, and back pain, abnormal urinalysis with E. co li and imaging findings consistent with pyelonephritis and now evidence of volume overload. Continue levofloxacin and diuresis to manage her volume overload. The need to self-catheterized introduces c omplication in terms of management.
[2017-05-02] MEDS: Ibuprofen 200 MG TAB PO PRN ×3 (05:58→18:41)
[2017-05-02] MEDS: Pantoprazole 40 MG VIAL IVP SCH (08:36)
[2017-05-02] MEDS: Saccharomyces boulardii 250 MG CAP PO SCH (08:36)
--- NOTE | 2017-05-02 09:00 | PRG ---
DATE OF SERVICE: 05/02/2017 SUBJECTIVE: The patient is feeling much better this morning. She is ambulating. Her bowels still r emain slightly loose, but improving. She does tire easily. OBJECTIVE: VITAL SIGNS: Temperature 97.7, pulse 89, respirations 16, pulse ox 93, blood pressure 129/72. HEART: Regular rate and rhythm. LUNGS: Clear with fine bibasilar rales. ABDOMEN: Soft. EXTREMITIES: With trace edema. LABORATORY DATA: None. ASSESSMENT: 1. Escherichia coli urosepsis with bilateral pyelonephritis. 2. Elevated liver function tests, improving. 3. Severe anemia. 4. Small bilateral pleural effusions. 5. Diarrhea, probable viral, worsened with antibiotics. 6. Low back pain/degenerative joint disease/moderate central canal stenosis at L4-L5 on MRI. 7. Cholelithiasis with gallbladder sludge. PLAN: 1. Complete 2 weeks of Levaquin 500 p.o. 2. Iron 325 b.i.d. 3. Increase activity. 4. Discharge planning. 5. Discharge medications will include Lipitor 40, Protonix 40, and Levaquin 500.
--- NOTE | 2017-05-02 10:26 | PQF ---
CLINICAL DOCUMENTATION IMPROVEMENT CLARIFICATION FORM: ICD-10 Updated PLEASE DO AN ADDENDUM TO THE PROGRESS NOTE WITH ANY DOCUMENTATION UPDATES OR ADDITIONS AND CARRY THROUGH TO DC SUMMARY. THANK YOU. DATE: 05/02/17 ATTN: Dr. Mccoy Please exercise your independent, professional judgment in responding to the clarification form. Clinical indicators are provided on the bottom of this form for your review Please check appropriate box(s): [ ] UTI please specify if due to or related to (as applicable): [ ] Self-catheterization [ ] Unable to determine etiology [ ] Other diagnosis [ ] Unable to determine For continuity of documentation, please document condition throughout progress notes and discharge summary. Thank You. CLINICAL INDICATORS - SIGNS / SYMPTOMS / LABS PHYSICIAN DOCUMENTATION QUERY 05/01: SEPSIS D/T UTI PN 05/02: ESCHERICHIA COLI UROSEPSIS WITH BILATERAL PYELONEPHRITIS. RISKS: H&P: SHE HAS NEUROGENIC BLADDER & REQUIRES SELF CATHETERIZATION. TREATMENTS: CPOE 04/26 TO 04/30: ZOSYN 3.375 GM IV Q 6 HR CPOE 04/30: LEVAQUIN 500MG PO DAILY Thank you, Sherine (This form is maintained as a part of the permanent medical record) 2015 [employer] All Rights Reserved Sherine Lisa RN, [email or web address] [email or web address] Office: [phone] [facility]
[2017-05-02 20:04] VITALS: BP 123/79
[2017-05-03] MEDS: Ibuprofen 200 MG TAB PO PRN ×2 (02:18→11:13)
--- NOTE | 2017-05-03 05:44 | PRG ---
DATE OF SERVICE: 05/02/2017 SUBJECTIVE: Ms. Mitchell still has some low back pain. She is feeling much better. OBJECTIVE: VITAL SIGNS: T-max 98.5, respirations 15, blood pressure 137/81. ABDOMEN: Nontender. LABORATORY DATA AND IMAGING: No labs today. MRI showed quite a bit of lumbar spine disease, but no overt signs of discitis or osteomyelitis. ASSESSMENT AND PLAN: 1. Urinary tract infection. 2. Liver function test, almost completely resolved. At this time, we will sign off. If I can be of any further assistance, please do not hesitate to contact me. I suspect that the LFT elevation was related to overall sepsis .
[2017-05-03 06:04] LABS: #Eosinphils 0.1 thou/uL (0.0-0.7); #Lymphocytes 0.7 thou/uL (1.20-3.40); #Neutrophils 8.8 thou/uL (1.40-6.50); %Basophils 0.3 % (0.0-1.0); %Eosinophils 0.8 % (0.0-10.0); %Lymphocytes 6.9 % (21.0-51.0); %Monocytes 9.7 % (0.0-10.0); Hematocrit 27.2 % (36.0-47.0); Mean Platelet Volume 6.4 fL (7.4-10.4); Red Blood Cell (RBC) Count 2.88 mill/uL (4.20-5.40); White Blood Cell (WBC) Count 10.7 thou/uL (4.8-10.8)
[2017-05-03 06:25] LABS: Anion Gap 12 mmol/L (10-20); BUN (Urea Nitrogen) 6 mg/dL (9.8-20.1); Calc. Creatinine Clearance 92 mL/min (70-130); Calcium 8.8 mg/dL (7.8-10.44); Carbon Dioxide 26 mmol/L (23-31); Chloride 103 mmol/L (98-107); Estimated GFR-MDRD 89
--- NOTE | 2017-05-03 08:40 | RAD ---
TWO VIEW CHEST: History: Dyspnea. Comparison: Portable chest, 04-28-17. FINDINGS: Bilateral pleural effusions may be slightly larger than on the prior study. Upper lung pruitt remain clear. Heart and mediastinum are unremarkable. IMPRESSION: Moderate sized bilateral pleural effusions again noted. These appear to enlarged slightly since prior exam. POS: [facility]
[2017-05-03] MEDS: Pantoprazole 40 MG VIAL IVP SCH (08:49)
[2017-05-03] MEDS: Saccharomyces boulardii 250 MG CAP PO SCH (08:49)
[2017-05-03 09:27] VITALS: TEMP 98
--- NOTE | 2017-05-03 14:31 | DIS ---
DATE OF ADMISSION: 04/25/2017 DATE OF DISCHARGE: 05/03/2017 DISCHARGE DIAGNOSES: 1. Escherichia coli urosepsis with bilateral pyelonephritis. 2. Neurogenic bladder requiring self-catheterization. 3. Elevated liver function tests, resolved. 4. Severe anemia, resolving. 5. Small bilateral pleural effusions. 6. Diarrhea, probably viral versus antibiotics. 7. Low back pain/degenerative joint disease with moderate central canal stenosis at L4-L5 on MRI. 8. Cholelithiasis with gallbladder sludge. DISCHARGE MEDICATIONS: Iron 325 b.i.d., Protonix 40 daily, Levaquin 500 p.o. daily x10 days, Lipitor 40 daily. CONSULTANTS: Dr. Guzman, Dr. Marie, and Dr. Cisneros. BRIEF HISTORY: This is a 66-year-old white female who 7 days prior presented with a flu-like illness . She was treated with Tamiflu; however, she had persistent weakness, nausea, vomiting, and started to have diarrhea. She was then seen in the office and with persistent nausea and vomiting, was direc coni to the emergency room. She also recently had an E. coli urinary tract infection diagnosed. In t ER, she was noted to be hypovolemic and hypotensive and was given fluid resuscitation. However, m arkedly elevated liver function tests were noted. HOSPITAL COURSE: Abdominal ultrasound revealed cholelithiasis. Dr. Guzman was consulted. Elevated white count was noted. However, he did not feel her issues were related to her gallbladder. Abdomi nal CT was obtained which revealed evidence of increased echogenicity of the kidneys suggesting possi ble bilateral pyelonephritis. Dr. Marie was consulted and was in agreement feeling that her issues were probably related to her kidneys and self-catheterization. Dr. Cisneros was also consulted who emmanuel mmended additional 10 days of p.o. Levaquin for the pyelonephritis. The patient's white count return ed to normal as well as the liver function tests. However, the patient's platelets continued to rise . I had discussion with Dr. Garcia who felt that this was probably most likely reactive thrombocyto sis and recommended repeat. Chest x-ray also revealed bilateral pleural effusions and this will be f ollowed on an outpatient basis. The patient is to follow up with me in 1 week and we will repeat the CBC, BMP, and chest x-ray.
== END 2017-05-03 11:35 | disposition home or self-care (01) | DRG 871 ==
LOC: ERS 13:02 → 2SW 16:32 → OBSVTOIN 04-26 08:33 → 2NO 04-26 17:43 → T4-A 04-30 11:24
PROVIDERS: ADMIT Family Medicine; ATTEND Family Medicine
DX: A41.9 Sepsis, unspecified organism (principal); R57.1 Hypovolemic shock; J90 Pleural effusion, not elsewhere classified; N12 Tubulo-interstitial nephritis, not specified as acute or chronic; N39.0 Urinary tract infection, site not specified; N31.9 Neuromuscular dysfunction of bladder, unspecified; A08.4 Viral intestinal infection, unspecified; K80.20 Calculus of gallbladder without cholecystitis without obstruction; E78.5 Hyperlipidemia, unspecified; D64.9 Anemia, unspecified; D18.00 Hemangioma unspecified site; I10 Essential (primary) hypertension; E87.6 Hypokalemia; R79.89 Other specified abnormal findings of blood chemistry; M79.1 Myalgia; M51.36 Other intervertebral disc degeneration, lumbar region; D47.3 Essential (hemorrhagic) thrombocythemia; M48.061 Spinal stenosis, lumbar region without neurogenic claudication; B96.20 Unspecified Escherichia coli [E. coli] as the cause of diseases classified elsewhere; R74.0 Nonspecific elevation of levels of transaminase and lactic acid dehydrogenase [LDH]; Z88.8 Allergy status to other drugs, medicaments and biological substances; Z82.3 Family history of stroke; Z82.49 Family history of ischemic heart disease and other diseases of the circulatory system
CPT/HCPCS: 36415; 51701; 71010; 71020; 72158; 74177; 76705; 80048; 80053; 81001; 81003; 81015; 82150; 82607; 82728; 82746; 83540; 83550; 83605; 83690; 83735; 84100; 85025; 85652; 86140; 86430; 86644; 86663; 86664; 86665; 86704; 86708; 86709; 86803; 87040; 87045; 87046; 87077; 87086; 87186; 87324; 87328; 87329; 87340; 87449; 87899; 93005; 96361; 96365; 96375; A4216; C9113; J0744; J1650; J1940; J2405; J2543; J3480; J7050

== ENCOUNTER 2018-09-27 09:04 | Outpatient (CLI) | payer MEDICARE ==
--- NOTE | 2018-09-27 09:36 | CT ---
Exam: CT sinuses without contrast HISTORY: Congestion COMPARISON: None TECHNIQUE: Multiple contiguous axial images were obtained and a CT of the face without contrast. Sagi ttal and coronal reformats were performed. FINDINGS: No facial fractures are identified. No facial soft tissue swelling is seen. The globes and retrobulbar soft tissues are unremarkable. The visualized paranasal sinuses are well aerated without evidence of opacification. No mucosal thick ening or mucous retention cysts are seen in any of the sinuses. The mastoid air cells are well aerated. Visualized intracranial structures are unremarkable. IMPRESSION: No significant sinus disease.
== END 2018-09-27 09:05 | disposition home or self-care (01) ==
LOC: SCSCT 09:04
PROVIDERS: ATTEND Family Medicine
DX: J32.9 Chronic sinusitis, unspecified (principal)

== ENCOUNTER 2019-01-21 15:49 | Outpatient (CLI) | payer MEDICARE | END 2019-01-21 15:50 | disposition home or self-care (01) | LOC: CTENTCT 15:49 | PROVIDERS: ATTEND Otolaryngology Plastic Surgery within the Head & Neck | DX: J32.9 Chronic sinusitis, unspecified (principal) | CPT/HCPCS: 70486 ==

== ENCOUNTER 2019-02-04 23:22 | Emergency (ER) | payer MEDICARE ==
[2019-02-04] MEDS ORDERED: Oxymetazoline HCl 0.05% (30 ML BOT) ONE (23:36)
--- NOTE | 2019-02-05 13:30 | CON ---
DATE OF CONSULTATION: 02/04/2019 This is an ER visit. The patient had surgery earlier on this day by Dr. Mode Guerrero in office with a balloon sinuplasty. The patient had persistent bleeding from the nose despite using saline rinses and Afrin, and the patient presented to the emergency department. Upon arrival, the patient's bleeding had decreased significantly, but had clot in both sides of the nose, primarily on the right side, which is the side that was bleeding. I suctioned out the clot, and there appeared to be rubin or puncture wounds on both anterior aspects of the inferior turbinates, and this appeared to be where the bleeding was occurring on that right side. I saw no bleeding on the left. I suctioned out all clot from both sides of the nose, the nasopharynx, and the posterior oropharynx. There continued to be oozing on that right side, so I placed a small nasal pack on that right side to compress the turbinate. The patient had no further bleeding noted even with Valsalva. The patient was then turned back toward the emergency department team and was discharged home and instructed to follow up with Dr. Guerrero the next day. Job ID: [id number]
== END 2019-02-05 00:27 | disposition home or self-care (01) ==
LOC: ERS 23:22
DX: J95.830 Postprocedural hemorrhage of a respiratory system organ or structure following a respiratory system procedure (principal); E78.5 Hyperlipidemia, unspecified; Z79.899 Other long term (current) drug therapy
CPT/HCPCS: 99283

== ENCOUNTER 2019-10-01 14:55 | Outpatient (CLI) | payer MEDICARE | END 2019-10-01 14:56 | disposition home or self-care (01) | LOC: CTENTCT 14:55 | PROVIDERS: ATTEND Otolaryngology Plastic Surgery within the Head & Neck | DX: J01.80 Other acute sinusitis (principal) | CPT/HCPCS: 70486 ==

== ENCOUNTER 2019-12-02 09:53 | Outpatient (CLI) | payer MEDICARE ==
--- NOTE | 2019-12-02 13:03 | CT ---
CT ABDOMEN AND PELVIS WITH AND WITHOUT IV CONTRAST: Date: 12/02/2019 HISTORY: Hematuria. Urinary retention. Patient had bladder suspension surgery. FINDINGS: Comparison made with exam of 05/06/2017. There are dependent changes in the lung bases. There are postop changes in the GE junction. There are lesions in the liver with peripheral nodular enhancement and centripetal filling on the delayed imag es consistent with hemangiomas measuring 15 mm and 2 cm in the right lobe, and 1 cm in the left lobe. No calcified gallstones are seen. The spleen, pancreas, and adrenal glands are normal. No calculi are seen in the kidneys, ureters, or the urinary bladder. No hydroureteronephrosis is seen on either side. There is a 5.0 mm fat-containing lesion in the left renal cortex consistent with ang iomyolipoma. There is normal contrast excretion into the ureters and urinary bladder. There is thicke vargas of the wall of the urinary bladder. No free air, free fluid, or lymphadenopathy seen in the abdomen or pelvis. There are vascular calcifi cations without evidence of aneurysmal dilatation of the abdominal aorta. The small bowel loops are n ot abnormally dilated. Postop changes are again seen in the sigmoid colon. There are degenerative henna nges in the spine. There is compression of the superior end plate of L3 vertebral body. IMPRESSION: 1. Liver hemangiomas. 2. No CT evidence of urinary tract calculi or obstruction. 3. Small left renal angiomyolipoma. 4. Urinary bladder wall thickening. Cystoscopy would be helpful. POS: [facility]
== END 2019-12-02 09:54 | disposition home or self-care (01) ==
LOC: BICCT 09:53
PROVIDERS: ATTEND Urology
DX: D17.71 Benign lipomatous neoplasm of kidney (principal); R33.9 Retention of urine, unspecified; N32.89 Other specified disorders of bladder; D18.09 Hemangioma of other sites; Z87.448 Personal history of other diseases of urinary system
CPT/HCPCS: 74178; 82565

== ENCOUNTER 2020-11-28 16:13 | Inpatient (IN) | payer MEDICARE ==
[2020-11-28] MEDS ORDERED: Ondansetron PF 4 MG/2 ML Vial ONE (16:45)
[2020-11-28] MEDS ORDERED: Morphine 4 MG/ML VIAL ONE ×2 (16:45→20:12)
[2020-11-28 16:58] LABS: Hemoglobin 15.5 g/dL (12.0-16.0); Mean Corpuscular HGB CONC 32.1 g/dL (32.0-36.0); Mean Corpuscular Hemoglobin 30.4 pg (27.0-31.0); Mean Corpuscular Volume 94.8 fL (78.0-98.0); Mean Platelet Volume 7.3 fL (7.4-10.4); Platelet Count 352 thou/uL (130-400); RBC Distribution Width 12.9 % (11.5-14.5); White Blood Cell (WBC) Count 22.5 thou/uL (4.8-10.8)
[2020-11-28 17:22] LABS: Band 19 % (5-11); Lymphocytes 4 % (21-51); MDiff Complete? YES; Monocytes 4 % (0-10); Neutrophil 70 % (42-75); Platelet Morphology Comment Appears Adequate; RBC Morphology Normal; Reactive Lymphocytes 1 % (0-10)
[2020-11-28 17:23] LABS: Anion Gap 17 mmol/L (10-20); BUN (Urea Nitrogen) 19 mg/dL (9.8-20.1); Calc. Creatinine Clearance 0 mL/min (70-130); Calcium 9.7 mg/dL (7.8-10.44); Carbon Dioxide 24 mmol/L (23-31); Chloride 103 mmol/L (98-107); Glucose 169 mg/dL (83-110); Potassium 5.3 mmol/L (3.5-5.1); Sodium 139 mmol/L (136-145)
[2020-11-28 17:44] LABS: Bilirubin Negative (Negative); Blood, Urine Negative (Negative); Clarity Clear (Clear); Glucose, Urine (Dipstick) Normal (Negative); Ketone, Urine Negative (Negative); Leukocyte Negative Leu/uL (Negative); Nitrite Negative (Negative); Protein, Urine (Dipstick) 20 mg/dL (Neg-Trace); Specific Gravity, Urine 1.012 (1.002-1.036); Urobilinogen Normal mg/dL (Less than 2)
[2020-11-28 17:53] LABS: Lipase Greater than 16000 U/L (8-78)
[2020-11-28] MEDS ORDERED: Piperacillin/Tazobactam 4.5 GM in Sodium Chloride 0.9% 100 ML IVPB SCH (18:00)
[2020-11-28] MEDS ORDERED: Piperacillin/Tazobactam 3.375 GM VIAL ONE (18:04)
[2020-11-28 18:35] LABS: ALT (SGPT) 162 U/L (8-55); AST (SGOT) 251 U/L (5-34); Albumin 4.1 g/dL (3.4-4.8); Alkaline Phosphatase 93 U/L (40-110); Anion Gap 16 mmol/L (10-20); BUN (Urea Nitrogen) 17 mg/dL (9.8-20.1); Bilirubin, Total 0.3 mg/dL (0.2-1.2); Calc. Creatinine Clearance 0 mL/min (70-130); Calcium 9.1 mg/dL (7.8-10.44); Carbon Dioxide 21 mmol/L (23-31); Chloride 108 mmol/L (98-107); Globulin 3.6 g/dL (2.4-3.5); Glucose 139 mg/dL (83-110); Potassium 4.8 mmol/L (3.5-5.1); Protein, Total 7.7 g/dL (5.8-8.1); Sodium 140 mmol/L (136-145)
[2020-11-28] MEDS ORDERED: Senokot S 8.6-50 MG TAB PO PRN (20:31)
[2020-11-28] MEDS ORDERED: Acetaminophen 325 MG TAB PO PRN (20:31)
[2020-11-28] MEDS ORDERED: Ondansetron PF 4 MG/2 ML Vial IVP PRN (20:31)
[2020-11-28] MEDS ORDERED: Sodium Chloride 0.9% 1,000 ML IV SCH ×2 (20:45→23:32)
[2020-11-28 21:08] LABS: Lactic Acid 2.3 mmol/L (0.5-2.2)
[2020-11-28 21:16] VITALS: BMI 20.7
[2020-11-28] MEDS: Famotidine/PF 20 mg/2ml Vial SLOW IVP SCH (22:22)
[2020-11-29] MEDS: Lactated Ringer's 1,000 ML IV SCH ×3 (00:06→10:38)
[2020-11-29] MEDS: Morphine 2 MG/ML VIAL SLOW IVP PRN ×3 (00:06→17:08)
[2020-11-29] MEDS: Piperacillin/Tazobactam 3.375 GM in Sodium Chloride 0.9% 100 ML IVPB SCH ×3 (02:04→17:09)
[2020-11-29 06:29] LABS: #Lymphocytes 1.6 thou/uL (1.20-3.40); #Neutrophils 10.7 thou/uL (1.40-6.50); %Basophils 0.3 % (0.0-1.0); %Eosinophils 0.3 % (0.0-10.0); %Lymphocytes 11.7 % (21.0-51.0); %Monocytes 7.3 % (0.0-10.0); %Neutrophils 80.4 % (42.0-75.0); Mean Corpuscular HGB CONC 32.3 g/dL (32.0-36.0); Mean Corpuscular Hemoglobin 30.5 pg (27.0-31.0); Mean Corpuscular Volume 94.6 fL (78.0-98.0); Mean Platelet Volume 7.1 fL (7.4-10.4); Platelet Count 315 thou/uL (130-400); RBC Distribution Width 12.9 % (11.5-14.5); White Blood Cell (WBC) Count 13.3 thou/uL (4.8-10.8)
[2020-11-29 07:01] LABS: CRP (Inflammatory) 7.76 mg/dL (= or < 0.5); Cardiac Risk 2.4 (Less than 4.5)
[2020-11-29 07:05] LABS: Lipase 5559 U/L (8-78)
[2020-11-29 07:24] LABS: Albumin 3.6 g/dL (3.4-4.8)
[2020-11-29 07:25] LABS: Chloride 106 mmol/L (98-107); Potassium 4.2 mmol/L (3.5-5.1); Sodium 142 mmol/L (136-145)
[2020-11-29 07:26] LABS: Calcium 9.1 mg/dL (7.8-10.44); Glucose 106 mg/dL (83-110)
[2020-11-29 07:27] LABS: Globulin 3.1 g/dL (2.4-3.5); Protein, Total 6.7 g/dL (5.8-8.1)
[2020-11-29 07:28] LABS: Anion Gap 16 mmol/L (10-20); Carbon Dioxide 24 mmol/L (23-31)
[2020-11-29 07:29] LABS: Alkaline Phosphatase 80 U/L (40-110)
[2020-11-29 07:30] LABS: Calc. Creatinine Clearance 62 mL/min (70-130)
[2020-11-29 07:31] LABS: BUN (Urea Nitrogen) 16 mg/dL (9.8-20.1)
[2020-11-29 07:32] LABS: ALT (SGPT) 118 U/L (8-55); AST (SGOT) 128 U/L (5-34)
[2020-11-29] MEDS: Enoxaparin Sodium 40 MG/0.4 ML SYRINGE SC SCH (07:45)
[2020-11-29] MEDS: Famotidine/PF 20 mg/2ml Vial SLOW IVP SCH ×2 (07:45→20:24)
[2020-11-29] MEDS: Aspirin 81 mg Enteric Coated Tablet PO SCH (10:10)
[2020-11-29 12:04] LABS: Bilirubin, Total 0.6 mg/dL (0.2-1.2)
[2020-11-29] MEDS ORDERED: SUGAMMADEX SODIUM 200 MG/2 ML VIAL ONE (13:39)
[2020-11-29] MEDS ORDERED: Famotidine/PF 20 mg/2ml Vial ONE (13:39)
[2020-11-29] MEDS ORDERED: Fentanyl 100 MCG/2 ML VIAL ONE (13:39)
[2020-11-29] MEDS ORDERED: Bupivacaine 0.25% HCL 30 ML VIAL ONE (13:44)
[2020-11-29] MEDS ORDERED: EPINEPHrine 1 MG/ML AMP ONE (13:44)
[2020-11-29] MEDS ORDERED: Iopamidol 15 ML ONE ×2 (13:45→14:52)
[2020-11-29] MEDS ORDERED: Sodium Chloride 0.9% 30 ML ONE (13:45)
[2020-11-29] MEDS ORDERED: Metoclopramide HCl 10 MG/2 ML VIAL ONE (14:00)
[2020-11-29] MEDS ORDERED: Rocuronium Bromide 10 MG/ML (10ML VIAL) ONE (14:00)
[2020-11-29] MEDS ORDERED: PROPOFOL 200 MG/20 ML VIAL ONE (14:00)
[2020-11-29] MEDS ORDERED: Succinylcholine 200 MG/10 ml SYRINGE FS ONE (14:00)
[2020-11-29] MEDS ORDERED: Lidocaine 1% PF 5 ML VIAL ONE (14:00)
[2020-11-29] MEDS ORDERED: ePHEDrine Sulfate 50 MG/10 ML VIAL ONE (14:00)
[2020-11-29] MEDS ORDERED: PHENYLEPHRINE-NS 100 MCG/ML 10 ML SYRINGE ONE (14:00)
[2020-11-29] MEDS ORDERED: Promethazine HCl 25 MG/ML VIAL IM PRN (15:32)
[2020-11-29] MEDS ORDERED: Ondansetron HCl/PF 4 MG/2 ML Vial IVP PRN (15:32)
[2020-11-29] MEDS ORDERED: Promethazine HCl 25 MG/ML VIAL IVPB PRN (15:32)
[2020-11-29] MEDS: HYDROcodone/Acetaminophen 5/325 mg Tablet PO PRN (20:31)
[2020-11-30] MEDS: HYDROcodone/Acetaminophen 5/325 mg Tablet PO PRN ×4 (01:49→19:54)
[2020-11-30] MEDS: Piperacillin/Tazobactam 3.375 GM in Sodium Chloride 0.9% 100 ML IVPB SCH ×3 (01:50→17:41)
[2020-11-30 05:40] LABS: #Eosinphils 0.1 thou/uL (0.0-0.7); #Lymphocytes 1.1 thou/uL (1.20-3.40); #Monocytes 0.6 thou/uL (0.11-0.59); #Neutrophils 5.9 thou/uL (1.40-6.50); %Basophils 0.4 % (0.0-1.0); %Eosinophils 0.9 % (0.0-10.0); %Lymphocytes 13.7 % (21.0-51.0); %Monocytes 7.8 % (0.0-10.0); %Neutrophils 77.2 % (42.0-75.0); Hemoglobin 11.7 g/dL (12.0-16.0); Mean Corpuscular HGB CONC 33.4 g/dL (32.0-36.0); Mean Corpuscular Hemoglobin 31.6 pg (27.0-31.0); Mean Corpuscular Volume 94.6 fL (78.0-98.0); Platelet Count 242 thou/uL (130-400); RBC Distribution Width 12.8 % (11.5-14.5); Red Blood Cell (RBC) Count 3.69 mill/uL (4.20-5.40); White Blood Cell (WBC) Count 7.7 thou/uL (4.8-10.8)
[2020-11-30] MEDS: Famotidine/PF 20 mg/2ml Vial SLOW IVP SCH ×2 (08:05→19:52)
[2020-11-30] MEDS: Aspirin 81 mg Enteric Coated Tablet PO SCH (08:05)
[2020-11-30] MEDS: Enoxaparin Sodium 40 MG/0.4 ML SYRINGE SC SCH (08:05)
[2020-11-30 13:19] LABS: ALT (SGPT) 1926 U/L (8-55); AST (SGOT) 2919 U/L (5-34); Albumin 3.1 g/dL (3.4-4.8); Alkaline Phosphatase 252 U/L (40-110); Anion Gap 11 mmol/L (10-20); BUN (Urea Nitrogen) 9 mg/dL (9.8-20.1); Bilirubin, Total 2.4 mg/dL (0.2-1.2); Calc. Creatinine Clearance 62 mL/min (70-130); Calcium 8.8 mg/dL (7.8-10.44); Carbon Dioxide 28 mmol/L (23-31); Chloride 101 mmol/L (98-107); Globulin 2.8 g/dL (2.4-3.5); Glucose 104 mg/dL (83-110); Potassium 4.3 mmol/L (3.5-5.1); Protein, Total 5.9 g/dL (5.8-8.1); Sodium 136 mmol/L (136-145)
[2020-11-30 13:50] LABS: Lipase 1262 U/L (8-78)
[2020-11-30] MEDS: Morphine 2 MG/ML VIAL SLOW IVP PRN (20:48)
[2020-12-01] MEDS: Piperacillin/Tazobactam 3.375 GM in Sodium Chloride 0.9% 100 ML IVPB SCH ×2 (01:17→10:08)
[2020-12-01] MEDS: HYDROcodone/Acetaminophen 5/325 mg Tablet PO PRN (05:54)
[2020-12-01 06:30] LABS: ALT (SGPT) 1129 U/L (8-55); AST (SGOT) 1016 U/L (5-34); Albumin 3.1 g/dL (3.4-4.8); Alkaline Phosphatase 226 U/L (40-110); Anion Gap 11 mmol/L (10-20); BUN (Urea Nitrogen) 5 mg/dL (9.8-20.1); Bilirubin, Total 1.4 mg/dL (0.2-1.2); Calc. Creatinine Clearance 68 mL/min (70-130); Calcium 8.2 mg/dL (7.8-10.44); Carbon Dioxide 27 mmol/L (23-31); Chloride 101 mmol/L (98-107); Globulin 2.7 g/dL (2.4-3.5); Glucose 98 mg/dL (83-110); Lipase 261 U/L (8-78); Potassium 3.5 mmol/L (3.5-5.1); Protein, Total 5.8 g/dL (5.8-8.1); Sodium 135 mmol/L (136-145)
[2020-12-01 07:26] VITALS: BP 118/61; TEMP 98.2
[2020-12-01] MEDS: Enoxaparin Sodium 40 MG/0.4 ML SYRINGE SC SCH (08:10)
[2020-12-01] MEDS: Famotidine/PF 20 mg/2ml Vial SLOW IVP SCH (08:10)
[2020-12-01] MEDS: Aspirin 81 mg Enteric Coated Tablet PO SCH (08:10)
== END 2020-12-01 11:27 | disposition home or self-care (01) | DRG 417 ==
LOC: ERS 16:13 → T4-B 20:18
PROVIDERS: ADMIT Internal Medicine; ATTEND Internal Medicine
PROC: 0FT44ZZ Resection of Gallbladder, Percutaneous Endoscopic Approach (ICD-10-PCS; principal; 2020-11-29)
PROC: BF141ZZ Fluoroscopy of Gallbladder, Bile Ducts and Pancreatic Ducts using Low Osmolar Contrast (ICD-10-PCS; 2020-11-29)
DX: K80.62 Calculus of gallbladder and bile duct with acute cholecystitis without obstruction (principal); K85.10 Biliary acute pancreatitis without necrosis or infection; E87.2 Acidosis; K59.01 Slow transit constipation; E78.5 Hyperlipidemia, unspecified; Z88.1 Allergy status to other antibiotic agents; Z79.82 Long term (current) use of aspirin; Z79.899 Other long term (current) drug therapy; Z90.49 Acquired absence of other specified parts of digestive tract; Z90.710 Acquired absence of both cervix and uterus
CPT/HCPCS: 36415; 47532; 51701; 74177; 76705; 80048; 80053; 80061; 81003; 82150; 83605; 83615; 83690; 84478; 85025; 86140; 87040; 87086; 88304; 93005; 96365; 96375; 96376; J0171; J1650; J2270; J2405; J2543; J2704; J2765; J3010; J3490; Q9967; S0020; S0028

== ENCOUNTER 2021-02-04 12:19 | Outpatient (CLI) | payer MEDICARE, OTHER | END 2021-02-04 12:20 | disposition home or self-care (01) | LOC: BICULT 12:19 | PROVIDERS: ATTEND Urology | DX: D17.71 Benign lipomatous neoplasm of kidney (principal); R33.9 Retention of urine, unspecified; N32.89 Other specified disorders of bladder | CPT/HCPCS: 76770 ==

== ENCOUNTER 2021-04-21 15:38 | Emergency (ER) | payer MEDICARE, OTHER ==
[2021-04-21 16:12] LABS: #Basophils 0.1 thou/uL (0.0-0.2); #Eosinphils 0.1 thou/uL (0.0-0.7); #Lymphocytes 1.8 thou/uL (1.20-3.40); #Monocytes 0.7 thou/uL (0.11-0.59); #Neutrophils 5.2 thou/uL (1.40-6.50); %Basophils 0.8 % (0.0-1.0); %Eosinophils 1.4 % (0.0-10.0); %Lymphocytes 22.6 % (21.0-51.0); %Monocytes 8.4 % (0.0-10.0); %Neutrophils 66.8 % (42.0-75.0); Hemoglobin 15.1 g/dL (12.0-16.0); Mean Corpuscular HGB CONC 33.1 g/dL (32.0-36.0); Mean Corpuscular Hemoglobin 31.4 pg (27.0-31.0); Mean Corpuscular Volume 94.9 fL (78.0-98.0); Platelet Count 325 thou/uL (130-400); RBC Distribution Width 12.2 % (11.5-14.5); Red Blood Cell (RBC) Count 4.82 mill/uL (4.20-5.40); White Blood Cell (WBC) Count 7.8 thou/uL (4.8-10.8)
[2021-04-21 16:59] LABS: Albumin 4.2 g/dL (3.4-4.8)
[2021-04-21 17:00] LABS: Chloride 99 mmol/L (98-107); Potassium 5.6 mmol/L (3.5-5.1); Sodium 136 mmol/L (136-145)
[2021-04-21 17:01] LABS: Calcium 9.8 mg/dL (7.8-10.44); Globulin 4.2 g/dL (2.4-3.5); Glucose 92 mg/dL (83-110); Protein, Total 8.4 g/dL (5.8-8.1)
[2021-04-21 17:03] LABS: Anion Gap 15 mmol/L (10-20); Bilirubin, Total 0.3 mg/dL (0.2-1.2); Carbon Dioxide 28 mmol/L (23-31)
[2021-04-21 17:04] LABS: Alkaline Phosphatase 105 U/L (40-110)
[2021-04-21 17:05] LABS: BUN (Urea Nitrogen) 21 mg/dL (9.8-20.1); Calc. Creatinine Clearance 0 mL/min (70-130)
[2021-04-21 17:06] LABS: AST (SGOT) 101 U/L (5-34)
[2021-04-21 17:07] LABS: ALT (SGPT) 66 U/L (8-55); Lipase 76 U/L (8-78)
[2021-04-21 19:24] LABS: Bilirubin Negative (Negative); Blood, Urine Negative (Negative); Clarity Clear (Clear); Glucose, Urine (Dipstick) Normal (Negative); Ketone, Urine Negative (Negative); Leukocyte Negative Leu/uL (Negative); Nitrite Negative (Negative); Protein, Urine (Dipstick) Negative (Neg-Trace); Specific Gravity, Urine 1.035 (1.002-1.036); Urobilinogen Normal mg/dL (Less than 2)
== END 2021-04-21 19:54 | disposition home or self-care (01) ==
LOC: ERS 15:38
DX: R07.89 Other chest pain (principal)
CPT/HCPCS: 36415; 71045; 74177; 80053; 81003; 83690; 84484; 85025; 87086; 93005

== ENCOUNTER 2022-08-29 13:45 | Outpatient (CLI) | payer MEDICARE, OTHER | END 2022-08-29 13:46 | disposition home or self-care (01) | LOC: BICULT 13:45 | PROVIDERS: ATTEND Urology | DX: R33.9 Retention of urine, unspecified (principal); D17.9 Benign lipomatous neoplasm, unspecified | CPT/HCPCS: 76770 ==

== ENCOUNTER 2023-06-28 11:10 | Outpatient (CLI) | payer MEDICARE, OTHER | END 2023-06-28 11:11 | disposition home or self-care (01) | LOC: BICRAD 11:10 | PROVIDERS: ATTEND Family Medicine | DX: M54.6 Pain in thoracic spine (principal); M47.816 Spondylosis without myelopathy or radiculopathy, lumbar region; M51.36 Other intervertebral disc degeneration, lumbar region | CPT/HCPCS: 72100 ==